=== PATIENT | female | born 1985 | race Caucasian/White ===

== ENCOUNTER 2016-06-20 06:40 | Emergency (ER) | payer OTHER ==
[~2016-06-20] VITALS: Ht 157.5 cm; Wt 112.3 kg
[2016-06-20] MEDS ORDERED: PREN-155 PO (06:47)
[2016-06-20] MEDS ORDERED: ACETAMINOPHEN 325 MG TABLET PO ONE (07:00)
[2016-06-20 07:15] VITALS: BP 103/57
== END 2016-06-20 07:57 | disposition home or self-care (01) ==
LOC: EMS 06:41
DX: R07.89 Other chest pain (principal); R05 Cough; Z87.891 Personal history of nicotine dependence
CPT/HCPCS: 93005; 99283